=== PATIENT | male | born 1995 | race American Indian/Alaskan Native ===

== ENCOUNTER 2020-01-12 14:51 | Emergency (ER) | payer SELFPAY ==
[2020-01-12 15:36] VITALS: BP 133/62
== END 2020-01-12 18:37 | disposition left against medical advice (07) ==
LOC: ED 14:51
DX: Z53.21 Procedure and treatment not carried out due to patient leaving prior to being seen by health care provider (principal)

== ENCOUNTER 2020-05-24 17:22 | Emergency (ER) | payer SELFPAY ==
[2020-05-24 18:04] VITALS: BP 136/87
--- NOTE | 2020-05-24 18:38 | Event Note ---
ED Screening Note Date of service: 05/24/20 Time: 18:33 ED Screening Note: 24-year-old -[place] male presents to the emergency room for right knee injury. Patient states that he heard a pop while he was playing with his cousin. Patient states this happened last night. Patient reports increased pain swelling and difficulty to walk. This initial assessment/diagnostic orders/clinical plan/treatment(s) is/are subject to change based on patients health status, clinical progression and re- assessment by fellow clinical providers in the ED. Further treatment and workup at subsequent clinical providers discretion. Patient/guardian urged not to elope from the ED as their condition may be serious if not clinically assessed and managed. Initial orders include:
[2020-05-24] MEDS ORDERED: IBUPROFEN 600 MG TAB PO ONE (19:38)
[2020-05-24] MEDS ORDERED: CYCLOBENZAPRINE 10 MG TAB PO ONE (19:39)
--- NOTE | 2020-05-24 19:47 | Emergency Department Report ---
ED Lower Extremity HPI - General Chief Complaint: Extremity Injury, Lower Stated Complaint: RT KNEE PAIN Source: patient Mode of arrival: Ambulatory Limitations: No Limitations - History of Present Illness Initial Comments: Patient is a 24-year-old -T[place] male with no past medical history presents to the ED with complaint of acute onset persistent severe right knee pa in after wrestling with his cousin 24 hours ago. Patient states that in the process of wrestling he had a pop on his right knee and from then on the right knee has been persistently painful. Patient states that about 12 hours ago he woke up to mild swelling on the right knee and that he can hardly bear weight on the right leg because of the right knee pain. Patient denies numbness and tingling or weakness of right leg, dizziness, syncope, fall, hip pain, nausea and vomiting, head or neck injuries, back pain, chest pain or shortness of breath. MD Complaint: knee injury (right knee) -: Sudden, hour(s) (24) Injury: Knee: Right (Pain) Type of Injury: eversion, hyperextension Place: home Severity: severe Severity scale (0 -10): 7 Improves With: nothing Worsens With: weight bearing, movement, palpation Context: other (Twisted right knee when wrestling) Associated Symptoms: snap/pop sensation, swelling, able to partially bear weight. denies: numbness, tingling, unable to bear weight, ambulatory - Related Data Previous Rx's Medication Instructions Recorded Last Taken Type Cyclobenzaprine [Flexeril] 10 mg PO Q12H PRN #12 tablet 05/24/20 Unknown Rx Ibuprofen [Motrin] 600 mg PO Q8H PRN #30 tablet 05/24/20 Unknown Rx Allergies Allergy/AdvReac Type Severity Reaction Status Date / Time No Known Allergies Allergy Unverified 05/24/20 18:34 ED Review of Systems ROS: Stated complaint: RT KNEE PAIN Other details as noted in HPI Constitutional: denies: chills, fever Eyes: denies: eye pain, eye discharge, vision change ENT: denies: ear pain, throat pain Respiratory: denies: cough, shortness of breath, wheezing Cardiovascular: denies: chest pain, palpitations Endocrine: no symptoms reported Gastrointestinal: denies: abdominal pain, nausea, diarrhea Genitourinary: denies: urgency, dysuria Musculoskeletal: joint swelling (right knee mild swelling), arthralgia (right knee pain). denies: back pain Skin: denies: rash, lesions Neurological: denies: headache, weakness, paresthesias Psychiatric: denies: anxiety, depression Hematological/Lymphatic: denies: easy bleeding, easy bruising ED Past Medical Hx - Past Medical History Previous Medical History?: No - Social History Smoking Status: Never Smoker Substance Use Type: Marijuana - Medications Home Medications: Home Medications Medication Instructions Recorded Confirmed Last Taken Type Cyclobenzaprine [Flexeril] 10 mg PO Q12H PRN #12 tablet 05/24/20 Unknown Rx Ibuprofen [Motrin] 600 mg PO Q8H PRN #30 tablet 05/24/20 Unknown Rx ED Physical Exam - General Limitations: No Limitations General appearance: alert, in no apparent distress - Head Head exam: Present: atraumatic, normocephalic, normal inspection - Eye Eye exam: Present: normal appearance, PERRL, EOMI Pupils: Present: normal accommodation - ENT ENT exam: Present: normal exam, normal orophraynx, mucous membranes moist, TM's normal bilaterally, normal external ear exam - Neck Neck exam: Present: normal inspection, full ROM. Absent: tenderness, meningismus, lymphadenopathy - Respiratory Respiratory exam: Present: normal lung sounds bilaterally. Absent: respiratory distress, wheezes, rales, rhonchi, stridor, chest wall tenderness, accessory muscle use, decreased breath sounds, prolonged expiratory - Cardiovascular Cardiovascular Exam: Present: regular rate, normal rhythm, normal heart sounds. Absent: systolic murmur, diastolic murmur, rubs, gallop - GI/Abdominal GI/Abdominal exam: Present: soft, normal bowel sounds. Absent: distended, tenderness, guarding, rebound, hyperactive bowel sounds, hypoactive bowel sounds, organomegaly - Extremities Exam Extremities exam: Present: normal inspection, tenderness (Palpable right knee tenderness with mild swelling and limited ROM due to pain), normal capillary refill, joint swelling (Mild right knee swelling). Absent: full ROM (Limited ROM due to pain), pedal edema, calf tenderness - Back Exam Back exam: Present: normal inspection, full ROM. Absent: tenderness, CVA tenderness (R), CVA tenderness (L), muscle spasm, paraspinal tenderness, vertebral tenderness - Neurological Exam Neurological exam: Present: alert, oriented X3, CN II-XII intact, normal gait, reflexes normal - Psychiatric Psychiatric exam: Present: normal affect, normal mood - Skin Skin exam: Present: warm, dry, intact, normal color. Absent: rash ED Course Vital Signs 05/24/20 18:02 Temperature 98.5 F Pulse Rate 73 Respiratory 18 Rate Blood Pressure 136/87 O2 Sat by Pulse 100 Oximetry ED Lower Extremity MDM - Radiology Data Radiology results: report reviewed, image reviewed Findings [facility] [address] [place] [address] XRay Report Signed Patient: JOSÉ MANUEL MARTINEZ MR#: [id number] [birth year] : 1995 Acct:[id number] Age/Sex: 24 / M ADM Date: 05/24/20 Loc: ED Attending Dr: Ordering Physician: BRITTON CHEW Date of Service: 05/24/20 Procedure(s): XR knee 3V RT Accession Number(s): [id number] cc: BRITTON CHEW Fluoro Time In Minutes: RIGHT KNEE 3 VIEWS INDICATION / CLINICAL INFORMATION: Right knee injury with pain and swelling COMPARISON: None available. FINDINGS: BONES / JOINT(S): No acute fracture or subluxation. No significant arthritis. SOFT TISSUES: There is a small effusion in the suprapatella bursa ADDITIONAL FINDINGS: None. Signer Name: Chan Martines MD Signed: 05/24/2020 8:11 PM Workstation Name: [id number] Transcribed By: SS Dictated By: Chan Martines MD Electronically Authenticated By: Chan Martines MD Signed Date/Time: 05/24/202010 DD/ 10 TD/TT: - Medical Decision Making This is a 24-year-old -[place] male with no past medical history presents to the ED with complaint of acute onset persistent severe right knee pain after wrestling with his cousin 24 hours ago. Patient states that in the process of wrestling he had a pop on his right knee and from then on the right knee has been persistently painful. Patient states that about 12 hours ago he woke up to mild swelling on the right knee and that he can hardly bear weight on the right leg because of the right knee pain. In the ED, patient is alert and oriented x3 and is not in distress but appears to be in pain. Patient was treated for pain in the ED and right knee x-ray shows no acute fractures or subluxations. Patient's right knee was splinted with Russel wrap and the patient was discharged home on pain medications and advised to follow-up with his primary care physician in 5 to 7 days for reevaluation. Patient was advised to return to the ED immediately if symptoms get worse. - Differential Diagnosis Knee fracture; Knee sprain; Muscle strain Critical care attestation.: If time is entered above; I have spent that time in minutes in the direct care of this critically ill patient, excluding procedure time. ED Disposition Clinical Impression: Sprain of right knee Qualifiers: Encounter type: initial encounter Involved ligament of knee: unspecified ligament Qualified Code(s): S83.91XA - Sprain of unspecified site of right knee, initial encounter Muscle strain of right knee Qualifiers: Encounter type: initial encounter Qualified Code(s): S86.911A - Strain of unspecified muscle(s) and tendon(s) at lower leg level, right leg, initial encounter Disposition: DC- TO HOME OR SELFCARE Is pt being admited?: No Does the pt Need Aspirin: No Condition: Stable Instructions: Knee Sprain, Adult, [id number], Muscle Strain, [id number] Additional Instructions: The right knee x-ray shows no acute fractures or subluxations. Your injuries are therefore likely due to muscle strain or an right knee sprain. Therefore take medications with food, drink plenty of fluids and follow-up with your primary care physician in 5 to 7 days for reevaluation. Return to the ED immediately if symptoms get worse. Prescriptions: Cyclobenzaprine [Flexeril] 10 mg PO Q12H PRN #12 tablet PRN Reason: Muscle Spasm Ibuprofen [Motrin] 600 mg PO Q8H PRN #30 tablet PRN Reason: Pain Referrals: [facility] [Provider Group] - 3-5 Days Time of Disposition: 19:48 Print Language: MALDIVIAN
--- NOTE | 2020-05-24 20:16 | XRay Report ---
RIGHT KNEE 3 VIEWS INDICATION / CLINICAL INFORMATION: Right knee injury with pain and swelling COMPARISON: None available. FINDINGS: BONES / JOINT(S): No acute fracture or subluxation. No significant arthritis. SOFT TISSUES: There is a small effusion in the suprapatella bursa ADDITIONAL FINDINGS: None. Signer Name: Chan Martines MD Signed: 05/24/2020 8:11 PM Workstation Name: [id number]
== END 2020-05-24 21:16 | disposition home or self-care (01) ==
LOC: ED 17:22
DX: S83.91XA Sprain of unspecified site of right knee, initial encounter (principal); S86.911A Strain of unspecified muscle(s) and tendon(s) at lower leg level, right leg, initial encounter; F12.10 Cannabis abuse, uncomplicated; Z79.1 Long term (current) use of non-steroidal anti-inflammatories (NSAID); Z79.899 Other long term (current) drug therapy; X58.XXXA Exposure to other specified factors, initial encounter; Y93.89 Activity, other specified; Y92.89 Other specified places as the place of occurrence of the external cause; Y99.8 Other external cause status
CPT/HCPCS: 99283